=== PATIENT | female | born 1990 | race African-American/Black ===

== ENCOUNTER 2021-11-17 20:33 | Emergency (ER) | payer SELFPAY ==
[~2021-11-17] VITALS: Ht 172.7 cm; Wt 67.1 kg
[2021-11-17 21:23] VITALS: BP 128/76
[2021-11-17] MEDS ORDERED: ACETAMINOPHEN ES 500 MG TABLET ONE (21:38)
[2021-11-17] MEDS ORDERED: ACETAMINOPHEN ES 500 MG TABLET PO ONE (22:00)
--- NOTE | 2021-11-17 22:18 | NUR ---
PT IS MEDICALLY CLEARED FOR BOOKING AND RELEASED UNDER THE CARE OF [employer] OFFICER. PT IS IN STABLE CONDITION FOR TRANSPORT. PT LEFT WITH 2 OFFICERS IN HAND CUFFS
== END 2021-11-17 22:23 ==
LOC: ER 20:52
DX: Z02.89 Encounter for other administrative examinations (principal); Z20.822 Contact with and (suspected) exposure to COVID-19; M25.531 Pain in right wrist; M25.562 Pain in left knee; M25.561 Pain in right knee
CPT/HCPCS: 99283; 87426; C9803